=== PATIENT | female | born 1955 | race Caucasian/White ===

== ENCOUNTER → 2020-11-16 | Outpatient (CLI) | payer BC ==
[~2020-11-16] MED LIST: CEPHALEXIN500 M1 PO; CLARITIN 1010 MG/TAB PO; NO HOME MEDICATIONS
== END ==
LOC: MC.RAD 13:15
DX: Z12.31 Encounter for screening mammogram for malignant neoplasm of breast (principal); N63.10 Unspecified lump in the right breast, unspecified quadrant

== ENCOUNTER → 2020-11-19 | Outpatient (CLI) | payer BC | LOC: MC.RAD 07:45 | DX: N63.10 Unspecified lump in the right breast, unspecified quadrant (principal) ==

== ENCOUNTER → 2020-11-25 | Outpatient (CLI) | payer BC | LOC: MC.RAD 08:30 | DX: N64.9 Disorder of breast, unspecified (principal); Z98.82 Breast implant status ==

== ENCOUNTER 2021-06-17 13:36 | Outpatient (CLI) | payer BC ==
[~2021-06-17] VITALS: Ht 165.1 cm; Wt 59.0 kg
[~2021-06-17 13:36] MED LIST changes: -CLARITIN 1010 MG/TAB PO
[2021-06-17 14:36] VITALS: BP 133/74; PULSE 105; TEMP 98.7
[2021-06-17 14:45] VITALS: BP 146/83; PULSE 109
[2021-06-17] MEDS ORDERED: CLARITIN 1010 MG/TAB PO (14:51)
[2021-06-17 15:00] VITALS: BP 132/84; PULSE 98
[2021-06-17 15:15] VITALS: BP 106/87; PULSE 97
[2021-06-17 15:30] VITALS: BP 124/69; PULSE 99
[2021-06-17 15:45] VITALS: BP 138/74; PULSE 91
== END 2021-06-17 16:56 ==
LOC: EUO 13:36
DX: U07.1 COVID-19 (principal)
CPT/HCPCS: Q0244